=== PATIENT | female | born 1970 | race Caucasian/White ===

== ENCOUNTER 2017-09-27 23:07 | Emergency (ER) | payer BC ==
[~2017-09-27] VITALS: Ht 162.6 cm; Wt 95.9 kg
[~2017-09-27 23:07] MED LIST: FIORICET 50-301 EACH PO; HYDROCODON-ACE1 EAC7 PO; PERCOCET 5/31 TABLET PO; PROMETHAZINE HC25 M1 PO
[2017-09-27 23:44] LABS: APPEARANCE SL.HAZY ((CLEAR)); BILIRUBIN NEGATIVE; BLOOD MODERATE; GLUCOSE (STRIP) 50; KETONES 5; LEUKOCYTES TRACE; NITRITE NEGATIVE; PROTEIN (STRIP) 100; SPECIFIC GRAVITY 1.006 (1.000-1.030); UROBILINOGEN 0.2 MG/DL (0.2-1.0)
[2017-09-27 23:49] LABS: BACTERIA RARE /HPF; COLOR RED ((YELLOW)); EPITHELIAL CELLS RARE /HPF; MUCUS TRACE /LPF; RED BLOOD CELLS TNTC /HPF (0-5); UCUL ADDED? YES; WHITE BLOOD CELLS 30-40 /HPF (0-5)
[2017-09-28 00:18] LABS: HEMATOCRIT 37.4 % (36.0-46.0); HEMOGLOBIN 12.7 G/DL (11.9-15.5); MCV 88.2 FL (83-99); PLATELET COUNT 278 K/uL (156-360); RBC DIS.WIDTH-CV 12.3 % (11.8-14.6); RBC DIS.WIDTH-SD 39.8 % (39-53); RED BLOOD COUNT 4.24 M/uL (3.80-5.20); WHITE BLOOD COUNT 12.7 K/uL (4.1-10.2)
[2017-09-28 00:28] LABS: CHLORIDE 108 mEq/L (99-109); POTASSIUM 3.9 mEq/L (3.7-5.4); SODIUM 140 mEq/L (136-147)
[2017-09-28 00:30] LABS: GLUCOSE 107 mg/dL (70-99)
[2017-09-28 00:34] LABS: CREATININE 0.8 mg/dL (0.6-1.3); GFR ESTIMATE (CALCULATED) > 59 mL/min/
[2017-09-28 00:35] LABS: UREA NITROGEN (BUN) 21 mg/dL (9-23)
[2017-09-28] MEDS ORDERED: CIPRO500 MG PO (00:50)
[2017-09-28] MEDS ORDERED: PYRIDIUM200 MG PO (00:50)
[2017-09-28 01:17] VITALS: BP 120/73
== END 2017-09-28 01:18 | disposition home or self-care (01) ==
LOC: EME 23:07
DX: N39.0 Urinary tract infection, site not specified (principal); Z88.0 Allergy status to penicillin; Z88.1 Allergy status to other antibiotic agents; Z87.440 Personal history of urinary (tract) infections
CPT/HCPCS: 80048; 81003; 85027; 87077; 87086; 87186; 99281; 99284